=== PATIENT | male | born 2000 | race Caucasian/White ===

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

== ENCOUNTER 2025-08-09 17:32 | Emergency (ER) | payer MEDICAID, SELFPAY ==
[2025-08-09 17:32] VITALS: BP 143/62; PULSE 88; RESP 16; TEMP 36.1; O2SAT 100; BMI 20.5
--- NOTE | 2025-08-09 17:40 | RAD_ITS ---
PROCEDURE: KNEE 4 OR MORE VIEWS 08/09/2025 REASON FOR EXAM: INJURY TECHNIQUE: Procedure Code: RADKN Modality: DX Procedure: KNEE 4 OR MORE VIEWS Laterality: Left COMPARISON: none RAD/Knee 4 or More Views IMPRESSION: No acute fracture or dislocations. Minimal joint effusion. Mild soft tissue e conner. No radiographic foreign body. Reading Location: [facility]
--- NOTE | 2025-08-09 20:50 | ED.RN ---
Pt states he will return tomorrow, wants to go home and sleep
--- OUTSIDE RECORDS SUMMARY | 2025-08-09 21:14 | XMS RPT_ITS | CCD ---
Author Organization [facility] Care Team Providers Care Detector Car Operator Name Role Phone HOLLAND DICKSON (PROPERTY ANALYST) Unavailable Unavailable Miedel, Nandini Unavailable Unavailable Shelley Nandini Unavailable Unavailable VANDANA CORTEZ MD Attending Unavailable VANDANA CORTEZ MD Primary Care Unavailable VANDANA CORTEZ MD Admitting Unavailable Problems Problem Classification Problem Date Documented Da te Episodic/Chronic Immunizations and screening for infectious disease (1 source) Contact with and (suspected) exposure to unspecified communicable disease; Translations: [Z20.9 - Contact with and (suspected) exposure to unspecified communicable disease] Onset: 07-14-2018 Episodic Unclassified (1 source) Unknown / UNK(Unknown) Onset: 07-31-2016 Results Test Name Value Interpretation Reference Range [facility] Rapid Plasmin Reagin (RPR)on 07-17-2018 Reagin Ab RPR Ql (S) NONREACTIVE Normal NONREACTIVE [facility] Comment on above: Performed By: #### [id number] ####[facility] [address] [place], [place], [id number] CT/NG [facility] BY PCRon 8 Chlam Trac PCR Negative Normal Negative [facility] Comment on above: Performed By: #### L8200.2000 ####[facility] [address] [place], [place], [id number] NG by PCR Negative Normal Negative [facility] Comment on above: Performed By: #### [id number] ####[facility] [address] [place], [place], [id number] HIV - WCHon 07-14-2018 HIV - [facility] Non-Reactive Normal Nonreactive [facility] Comment on above: Performed By: #### [id number] ####[facility] [address], [address] Encounters Encounter Date Encounter Type Care Provider Facility Start: 06-23-2024 End: 06-23-2024 Emergency department patient visit VANDANA CORTEZ [facility] Start: 07-14-2018 Patient encounter Nandini Rosa Faci lity:[facility] Start: 07-31-2016 End: 07-31-2017 Ambulatory INGLISH (PROPERTY ANALYST) YESSI [facility] Payers Date Payer Category Payer Self-pay 2018 Unknown [id number] 2000 Unknown [id number] Unknown [id number] Unknown [id number] Summary Purpose Family History No Family History Records FoundNo Family History Records FoundNo Family History Records Found Advance Directives No Advanced Directives Records FoundNo Advanced Directives Records FoundNo Advanced Directives Records Found Additional Source Comments (unrecognized sect ion and content) No Status Records FoundNo Status Records FoundNo Status Records Found INFORMATION SOURCE (unrecogn ized section and content) DATE CREATED AUTHOR 03/24/2018 [facility] DATE CREATED AUTHOR AUTHOR'S ORGANIZ ATION 08/17/2018 [facility] DATE CREATED AUTHOR AUTHOR'S ORGANIZ ATION 06/25/2024 [facility] FOR RECORDS PERTAINING TO PATIENTS WHO ARE OR HAVE BEEN ENROLLED IN A CHEMICAL DEPENDENCY/SUBSTANCEABUSE PROGRAM, SOME INFORMATION MAY BE OMITTED. This clinical summary was aggregated from multiple sources. Caution should be exercised in using it in the provision of clinical care. This summary normalizes information from multiple sources, and as a consequence, information in this document may materially change the coding, format and clinical context of patient data. In addition, data may be omitted in some cases. CLINICAL DECISIONS SHOULD BE BASED ON THE PRIMARY CLINICAL RECORDS. [facility] [employer] [facility]. provides no warranty or guarantee of the accuracy or completeness of information in this document.
== END 2025-08-09 20:50 | disposition left against medical advice (07) ==
LOC: ED 21:12
PROVIDERS: PCP Family Medicine
DX: Z53.21 Procedure and treatment not carried out due to patient leaving prior to being seen by health care provider (principal)
CPT/HCPCS: 73564

== ENCOUNTER 2025-08-17 20:33 | Emergency (ER) | payer OTHER, SELFPAY ==
[2025-08-17 20:34] VITALS: BP 136/68; PULSE 82; RESP 18; TEMP 36.7; O2SAT 99; BMI 20.6
--- NOTE | 2025-08-17 20:45 | RAD_ITS ---
PROCEDURE: KNEE 1 OR 2 VIEWS 08/17/2025 REASON FOR EXAM: INJURY/PAIN TECHNIQUE: Procedure Code: RADK Modality: DX Procedure: KNEE 1 OR 2 VIEWS Laterality: COMPARISON: 08/09/2025. FINDINGS: No evidence of acute fracture or dislocation. The joint spaces are maintained. No knee joint effusion. RAD/Knee 1 or 2 Views IMPRESSION: No acute osseous abnormalities. Reading Location: [id number]
--- NOTE | 2025-08-17 20:52 | ED.VIS.LOWEX ---
HPI History of Present Illness Chief Complaint: Lower Extremity Injury Detail of Chief Complaint: Patient states his knee dislocates. Informant: patient Occured/Mechanism Comment: Patient states his knee was flexed and when he straightened it out it popped back in Onset/Context/Timing Onset: Today and Hours Context: Sudden Onset Timing: Intermittent Quality of Pain: Dull and Aching Location: Left patella Worsened by: Frequent patella dislocations Relieved by: Extending his left lower extremity Associated Symptoms Associated Symptoms: Negative for Parasthesia, Weakness or Loss of Funtion (Initially not presently) Narrative Narrative: Patient is a 25-year-old male. 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 He states his leg is in a flexed position and it goes back and when he straightens out his leg. He never followed up with orthopedics. He does not have an orthopedic surgeon presently. He denies paresthesia, anesthesia or motor weakness. He denies direct trauma. Prior similar symptoms: Yes Recent Illness/Hospitalization: Yes [facility] Medical History (Updated 08/17/25 @ 22:[address] Rex Elam MD) Closed patellar dislocation Home Medications Medication Instructions Recorded Last Taken Type NK 08/17/25 Unknown History Allergy/AdvReac Type Severity Reaction Status Date / Time No Known Allergies Allergy Verified 08/17/25 20:34 Social History Smoking Status: Current every day smoker tobacco type: cigarettes and e-cigarettes ROS ROS ED Musculoskeletal Musculoskeletal: Reports other Details: Per HPI narrative Neurologic Neurologic: Denies paresthesias or weakness Hematologic/Lymphatic Hematologic/Lymphatic: Denies easy bleeding or easy bruising EXAM Physical Exam Const Vital Signs: 08/17/25 20:34 Temperature 98.1 F Temperature Source Oral Pulse Rate 82 Respiratory Rate 18 Blood Pressure 136/68 H Blood Pressure Mean 90 Pulse Ox 99 Oxygen Delivery Method Room Air Positive well nourished and well developed General Appearance ED: well developed HEENT Reports moist mucous membranes normocephalic and atraumatic Eyes PERRL Eyes Narrative: Extract muscles intact. Resp normal respiratory effort Cardio regular rate and regular rhythm Extremity full ROM; Negative for normal to inspection Extremity Narrative: The left knee is swollen compared to the right. Patient has a positive patellar distraction test. He is able to extend to approximately 170 degrees. Able to flex to 90 degrees. He complains of pain over the medial femoral condyle. There is no significant effusion appreciated. He has a negative Montse's test. He is able to bear weight. He has a slight limp presently. DP pulses palpable and 2+. Neuro oriented x3 and CN's II-XII intact bilaterally Sensorium / Orientation: alert Psych mental status grossly normal Skin Lesions: no lesions Rashes: no rashes Trauma: Negative for abrasion or laceration MDM MDM MDM Narrative Medical decision making narrative: Will obtain 2 view x-ray to determine if there is any significant arthritic changes. Will have him follow-up with Dr. Daniel Linda who is on-call for orthopedics. He will be treated with a knee immobilizer. Radiography Chest X-Ray - ED: 2 View and Read by ED Physician (There is no evidence of fracture, subluxation dislocation. There is no obvious effusion noted.) Diagnostic Testing: Clinical Impression(s) from Imaging Studies Knee X-Ray 08/17/25 20:45 IMPRESSION: No acute osseous abnormalities. Reading Location: [address] Treatment and Re-Evaluation Narrative: Clinically patient had a patella dislocation. Will treat with knee immobilizer and follow-up with Dr. Daniel Linda who is on-call for orthopedics no doc Discharge Plan Triage Chief Complaint: Lower Extremity Injury ED Provider: Rex Elam Dx/Rx/DC Orders Clinical Impression: Closed dislocation of left patella, Elevated blood pressure reading without diagnosis of hypertension Instructions: ED Hypertension, To Be Confirmed, ED Patella Dislocation Subluxation Prescriptions: No Action NK Primary Care Provider: Care Physician,No Primary Referrals: Jil Can DO [Med Staff - Active Staff, Internal Medicine] - 1-2 Weeks Daniel Linda MD [Med Staff - Active Staff, Orthopedics] - 1 Week Care Physician,No Primary [Primary Care Provider, Medical] Activity Restrictions/Additional Instructions: 1. Wear knee immobilizer until seen by Dr. Daniel Linda 2. Your blood pressure is elevated. You will need to have this reassessed in 1 to 2 weeks. 3. Apply ice to your left knee 6 times a day. 4. You may take 4 ibuprofen tablets every 8 hours for next 3 to 5 days for pain Print Language: Congolese Disposition Disposition: Home, Self Care
--- OUTSIDE RECORDS SUMMARY | 2025-08-17 21:08 | XMS RPT_ITS | CCD ---
Author Organization [facility] Care Team Providers Care Commercial Artist Lettering Name Role Phone HOLLAND DICKSON (COUNTER FORMER) Unavailable Unavailable VANDANA CORTEZ MD Attending Unavailable VANDANA CORTEZ MD Primary Care Unavailable VANDANA CORTEZ MD Admitting Unavailable Provider, Ed Physician Attending UnavailNandini Carver Primary Care Unavailable Problems Problem Classification Problem Date Documented Da te Episodic/Chronic Unclassified (1 source) Unknown / UNK(Unknown) Onset: 07-31-2016 Results Test Name Value Interpretation Reference Range Facil ity Knee 4 or More Viewson 08-09 Knee 4 or More Views [facility] Services [address] [place] [id number] Knee 4 or More Views MR#: [id number] Acct: [id number] Name: ANUJA BHAKTA Rep #: [id number] : 2000 M 25 From: Bj Ochoa PCP: Dr. Nandini Rosa MD Status: PRE ER Study: Knee 4 or More Views Date of Exam: 08/09/25 Exam# [id number] Ordering Dr: Provider,Ed P. PROCEDURE: KNEE 4 OR MORE VIEWS 08/09/2025 REASON FOR EXAM: INJURY TECHNIQUE: Procedure Code: RADKN Modality: DX Procedure: KNEE 4 OR MORE VIEWS Laterality: Left COMPARISON: none RAD/Knee 4 or More Views IMPRESSION: No acute fracture or dislocations. Minimal joint effusion. Mild soft tissue edema. No radiographic foreign body. Reading Location: [facility] CC: Dr. Nandini Rosa MD; ED PHYSICIAN PROVIDER Binder Selector: Signed Normal [facility] Encounters Encounter Date Encounter Type Care Provider Facility Start: 08-09-2025 End: 08-09-2025 Emergency department patient visit Ed Physician Provider Facility:[facility] Start: 06-23-2024 End: 06-23-2024 Emergency department patient visit VANDANA CORTEZ [facility] Start: 07-31-2016 End: 07-31-2017 Ambulatory INGLISH (COUNTER FORMER) KAPUT [facility] Payers Date Payer Category Payer Self-pay 2025 Unknown [id number] 2000 Unknown [id number] Unknown [id number] Unknown [id number] Summary Purpose Family History No Family History Records FoundNo Family History Records FoundNo Family History Records Found Advance Directives No Advanced Directives Records FoundNo Advanced Directives Records FoundNo Advanced Directives Records Found Additional Source Comments (unrecognized sect ion and content) No Status Records FoundNo Status Records FoundNo Status Records Found INFORMATION SOURCE (unrecogn ized section and content) DATE CREATED AUTHOR 03/24/2018 [facility] DATE CREATED AUTHOR AUTHOR'S ORGANIZ ATION 06/25/2024 [facility] DATE CREATED AUTHOR AUTHOR'S ORGANIZ ATION 08/11/2025 [facility] FOR RECORDS PERTAINING TO PATIENTS WHO [...] BE BASED ON THE PRIMARY CLINICAL RECORDS. [employer] provides no warranty or guarantee of the accuracy or completeness of information in this document.
[2025-08-17 22:40] VITALS: BP 130/63; PULSE 75; RESP 18; TEMP 36.6; O2SAT 99
== END 2025-08-17 22:41 | disposition home or self-care (01) ==
PROVIDERS: Emergency Provider Emergency Medicine; Visit Provider Emergency Medicine
DX: S83.005A Unspecified dislocation of left patella, initial encounter (principal); R03.0 Elevated blood-pressure reading, without diagnosis of hypertension; F17.210 Nicotine dependence, cigarettes, uncomplicated; F17.290 Nicotine dependence, other tobacco product, uncomplicated
CPT/HCPCS: 73560; 99283